=== PATIENT | female | born 1945 | race Caucasian/White ===

== ENCOUNTER 2021-05-08 12:49 | Emergency (ER) | payer OTHER ==
[2021-05-08 13:00] VITALS: BP 149/89; PULSE 108; TEMP 98.7; BMI 25.5
[2021-05-08] MEDS ORDERED: CASIRIVIMAB/IMDEVIMAB 10 ML in SODIUM CHLORIDE 100 ML IVPB ONE (13:10)
[2021-05-08 14:14] LABS: BASO % 0.8 % (0-2.0); EOS % 1.6 % (0-4.5); HEMATOCRIT 34.4 % (32.4-45.2); HEMOGLOBIN 11.7 GM/dL (10.7-15.3); LYMPH % 21.8 % (8-40); MCH 30.5 pg (25.7-33.7); MCHC 34.1 g/dl (32.0-36.0); MEAN CELL VOLUME 89.4 fl (80-96); MEAN PLT VOLUME 8.5 fl (7.5-11.1); MONO % 10.9 % (3.8-10.2); NEUT % 64.9 % (42.8-82.8); PLATELET COUNT 230 10^3/uL (134-434); RBC 3.85 M/mm3 (3.60-5.2); RDW 12.9 % (11.6-15.6); WHITE BLOOD COUNT 5.7 K/mm3 (4.0-10.0)
[2021-05-08 14:30] LABS: CALCIUM 9.1 mg/dL (8.5-10.1)
[2021-05-08 14:31] LABS: BLOOD UREA NITROGEN 14.4 mg/dL (7-18)
[2021-05-08 14:34] LABS: CREATININE 0.8 mg/dL (0.55-1.3)
== END 2021-05-08 15:45 | disposition home or self-care (01) ==
LOC: JER 12:49 → JCOVINFU 12:49
DX: U07.1 COVID-19 (principal)
CPT/HCPCS: 36415; 80048; 85025; 99284-25; Q0240